=== PATIENT | female | born 1995 | race Caucasian/White ===

== ENCOUNTER 2017-03-09 16:54 | Outpatient (CLI) | payer MEDICAID ==
[~2017-03-09] VITALS: Ht 152.4 cm; Wt 80.3 kg
[~2017-03-09 16:54] MED LIST: ACET500C5 PO; CEPH-443 PO; METO10TA92 PO; ONDA4TAB14 PO
[2017-03-09 17:37] VITALS: BP 118/56; PULSE 101
[2017-03-09] MEDS ORDERED: PRENAT PO (17:41)
--- NOTE | 2017-03-09 19:44 | RADRPT ---
PROCEDURE: US OB. CLINICAL INDICATION: Decreased movement TECHNIQUE: Pelvic ultrasound performed for biophysical profile. COMPARISON: 09/01/2016 FINDINGS: Single intrauterine gestation present with heart rate at 141 beats per minute. Presentation is ceph alic. Placenta is anterior, grade II. Biophysical profile score is 8/8 (breathing=2, movement=2, t one =2, fluid volume=2). Amniotic fluid volume is within normal limits, with DAVID = 21.9 cm. RPTAT:HJJR IMPRESSION: 1. Biophysical profile score 8/8. 2. Amniotic fluid index measured at 21.9 cm. Physician Al Date Time Electronically viewed and signed by Physician Al on 03/09/2017 19:43 JR/
--- NOTE | 2017-06-02 09:22 | QN ---
Documentation Comment 35 weeks gestation c/o abdominal pain. FHR: category I. She discharged home in satable condition with f/u with primary OB ROSSY COLINDRES Jun 02, 2017 09:21
--- NOTE | 2017-06-04 18:16 | PN ---
Triage Information Date/Time 03/09/17 Weeks of Gestation 35 : 1 Para: 0 Assessment/Plan DECREASE MOVEMENT HERBERT BRAND MD Jun 04, 2017 18:13
== END 2017-03-09 20:35 | disposition home or self-care (01) ==
LOC: L-D 16:54 → OBT 16:54 → L-D 16:55 → OBT 20:35
PROVIDERS: ATTEND Obstetrics & Gynecology
DX: O36.8130 Decreased fetal movements, third trimester, not applicable or unspecified (principal); Z3A.35 35 weeks gestation of pregnancy; O26.893 Other specified pregnancy related conditions, third trimester; R10.9 Unspecified abdominal pain
CPT/HCPCS: 76818; Z7500; G0463

== ENCOUNTER 2017-04-03 10:20 | Outpatient (CLI) | payer MEDICAID ==
--- NOTE | 2017-03-10 00:10 | PN ---
Date/Time of Note Date/Time of Note DATE: 03/10/17 TIME: 00:02 OB Subjective Subjective Subjective 21 Year-old G1 with SIUP at 35 1/7 weeks presents with a chief complaint of lower abdominal pain. She has been receiving her care with Dr. Garcia. She states good movement. She denies nausea, vomiting, shortness of breath, chest pain, headache, visual changes, vaginal bleeding or LOF. OB Objective Objective Objective General: Patient appears well, alert and oriented, NAD, appropriate mood and affect ABD: gravid, soft, non-tender. Back: No CVA tenderness (B/L) LE: No clubbing, cyanosis, edema, thigh or calf tenderness bilaterally FHT: 135 bpm , moderate variability with acceleration, no deceleration-category I Contractions: None SVE: closed/thick/high/cephalic/intact membrane OB Assessment/Plan Other plan: 21 Year-old G1 with SIUP at 35 1/7 weeks presents with lower abdominal pain.Her exam is unremarkable. - FHR: No sign of metabolic acidosis- Category I - Continuous EFM, toco - Contractions: None. - Reactive NST. BPP: 10/10, DAVID: 21.5 - Symptoms and sign of labor, preeclampsia, kick count discussed with patient, she voiced understanding. All of her questions answered. - Patient was discharged home in stable condition with the appropriate discharge instructions provided. I would like patient to have close follow-up with her primary physician or outpatient clinic in 1-2 days or return to the ER for worsening symptoms or any other urgent concerns. ROSSY COLINDRES Mar 10, 2017 00:10
[~2017-04-03] VITALS: Ht 152.4 cm; Wt 82.7 kg
[~2017-04-03 10:20] MED LIST changes: +PRENAT PO
[2017-04-03 10:33] VITALS: Ht 152.4 cm; Wt 82.7 kg
--- NOTE | 2017-04-03 10:46 | RADRPT ---
PROCEDURE: OB ultrasound for biophysical profile CLINICAL INDICATION: Macrosomia TECHNIQUE: Multiple sonographic images of the pelvis were obtained. Transabdominal views of the g ravid uterus are available for review. The images were reviewed on a PACS workstation. COMPARISON: None FINDINGS: breathing movement = 2/2 tone = 2/2 motion = 2/2 DAVID = 2/2 DAVID = 13.2 cm Single live intrauterine with cardiac activity of 150 bpm. position is cephal ic. The placenta is anterior. IMPRESSION: 1. Single live intrauterine gestation. 2. Biophysical profile = 8/8. 3. DAVID = 13.2 cm. RPTAT: HH .Aracelis Santiago MD, MD Date Time Electronically viewed and signed by .Aracelis Santiago MD, on 04/03/2017 10:46 .G/
--- NOTE | 2017-04-03 10:54 | RADRPT ---
PROCEDURE: Obstetrical ultrasound CLINICAL INDICATION: MACROSOMIA TECHNIQUE: Multiple sonographic images of the pelvis were obtained. The images were reviewed on a PACS workstation. COMPARISON: Obstetrical ultrasound from 03/09/2017 FINDINGS: The cervix is not well visualized. There is a single viable intrauterine gestation. Cardiac activity is present with 150 beats per minute. There is a vertex presentation. The placenta is anterior. There is no evidence for an abruption or placenta previa. There is a normal amount of amniotic fluid with an DAVID = 13.2 cm. Measurements were made in order to determine age. The results are as follows (cm): BPD =9.08 HC =32.15 AC =34.88 FL =7.40 Estimated gestational age by ultrasound of approximately 37 weeks, 3 days. The estimated date of delivery by ultrasound is 04/21/2017. Estimated gestational age by LMP of approximately 38 weeks, 5 days. The estimated date of delivery by LMP is 04/12/2017. EFW = 3377 grams (49th percentile) IMPRESSION: Single viable intrauterine gestation of approximately 37 weeks, 3 days . The estimated date of delivery is 04/21/2017 . Dating by ultrasound is within 9 days of dating by LMP. Estimated weight is in the 49th percentile. Normal DAVID. Cephalic presentation. RPTAT: EE Physician Adelaida Date Time Electronically viewed and signed by Physician Adelaida on 04/03/2017 10:54 RA/
--- NOTE | 2017-04-03 12:03 | TRIAGE ---
OB Triage Datetime Report Generated by CPN: 04/03/2017 12:03 Datetime: 04/03/2017 10:57 Labor Evaluation Frequency: OCC Monitor Mode: External Duration (sec)2399: 40-50 Quality: Mild Pattern: Normal: <= 5 Contractions in 10 Minutes Resting Tone [place]: Relaxed Heart Rate FHR Baseline Rate: 140 Monitor Mode: External US FHR Baseline Changes: No Baseline Change Variability: Moderate 6-25 bpm Accelerations: 15X15 Decelerations: None Category: Category I Pain Presence: None/Denies Datetime: 04/03/2017 10:37 Assessment Type: Triage Maternal Assessment Level of Consciousness: Fully Conscious DTR's/Clonus: DTRs 2+; No Clonus Headache: Denies Blurred Vision: No Respiratory Effort: Unlabored; Regular Rhythm; Equal Expansion Breath Sounds, Left: Clear and Equal Breath Sounds, Right: Clear and Equal Nausea/Vomiting: Denies RUQ Epigastric Pain: Denies Lower Extremities Edema: None Degree: None Upper Extremities Edema: None Degree: None Facial Edema: None Fall Risk Assessment History of Falling: (0) No Secondary Diagnosis: (0) No Ambulatory Aid: (0) Bedrest/Nurse Assist IV Therapy: (0) No Gait: (0) Normal/Bedrest/Immobile Mental Status: (0) Oriented to Own Ability Fall Score: 0 Fall Risk Score Definition: No Risk: No action required Datetime: 04/03/2017 10:34 Labor Evaluation Frequency: OCC Monitor Mode: External Quality: Mild Pattern: Normal: <= 5 Contractions in 10 Minutes Resting Tone [place]: Relaxed Heart Rate FHR Baseline Rate: 140 Monitor Mode: External US FHR Baseline Changes: No Baseline Change Variability: Moderate 6-25 bpm Accelerations: 15X15 Decelerations: None Category: Category I Pain Presence: None/Denies Datetime: 04/03/2017 10:20 Time of Arrival: 04/03/2017 10:20 EGA: 38.5 Arrived By: Ambulatory Arrived From: Home Chief Complaint: NST, DAVID, BPP AND EFW, POSITION Movement: Present Contractions: Irregular Rupture of Membranes: Denies Vaginal Bleeding: None Vaginal Discharge: Denies Recent Sexual Intercouse: Denies Abdominal Trauma: Not Applicable Patient Complaints: None Time Provider Notified: 04/03/2017 11:00 Provider Notified: [facility] Initial Plan: NST, DAVID, BPP AND EFW, POSITION Datetime: 03/09/2017 20:30 Stage of : OB Triage Datetime: 03/09/2017 20:26 Labor Evaluation Frequency: IRR/OCC Monitor Mode: External Duration (sec)2399: 40 Pattern: Normal: <= 5 Contractions in 10 Minutes Heart Rate FHR Baseline Rate: 145 Monitor Mode: External US FHR Baseline Changes: No Baseline Change Variability: Moderate 6-25 bpm Accelerations: 15X15 Decelerations: None Category: Category I Datetime: 03/09/2017 20:12 Vaginal Exam Dilatation (cms): 0.0 Effacement (%): 0 Station: -4 Exam By: QUINCY Vaginal Bleeding: None Cervix, Consistency: Firm Cervix, Position: Posterior Presentation 'A': Unable to Assess Datetime: 03/09/2017 20:11 Monitor Mode: Palpation Resting Tone [place]: Relaxed Datetime: 03/09/2017 20:00 Labor Evaluation Frequency: OCC Duration (sec)2399: 40-60 Pattern: Normal: <= 5 Contractions in 10 Minutes Heart Rate FHR Baseline Rate: 135 FHR Baseline Changes: No Baseline Change Variability: Moderate 6-25 bpm Decelerations: None Datetime: 03/09/2017 18:34 Stage of : OB Triage Datetime: 03/09/2017 18:32 Labor Evaluation Frequency: OCCAS Monitor Mode: External Duration (sec)2399: 30-50 Resting Tone [place]: Relaxed Heart Rate FHR Baseline Rate: 135 Monitor Mode: External US Variability: Moderate 6-25 bpm Decelerations: None Category: Category I Pain Assessment Pain Scale: 0 Pain Presence: None/Denies Pain Location: Abdomen Pain Goal: 3 Pain Relief Measures: Comfort Measures Datetime: 03/09/2017 17:33 Stage of : OB Triage Assessment Type: Triage EGA: 35.1 Maternal Assessment Level of Consciousness: Fully Conscious DTR's/Clonus: DTRs 2+; No Clonus Headache: Denies Blurred Vision: No Respiratory Effort: Unlabored; Regular Rhythm; Equal Expansion Breath Sounds, Left: Clear and Equal Breath Sounds, Right: Clear and Equal Nausea/Vomiting: Denies RUQ Epigastric Pain: Denies Facial Edema: None Temperature Route: Axillary Fall Risk Assessment History of Falling: (0) No Secondary Diagnosis: (0) No Ambulatory Aid: (0) Bedrest/Nurse Assist IV Therapy: (0) No Gait: (0) Normal/Bedrest/Immobile Mental Status: (0) Oriented to Own Ability Fall Score: 0 Fall Risk Score Definition: No Risk: No action required Labor Evaluation Frequency: 3-5 Monitor Mode: External Duration (sec)2399: 30-50 Quality: Mild Resting Tone [place]: Relaxed Heart Rate FHR Baseline Rate: 125 Monitor Mode: External US Variability: Moderate 6-25 bpm Decelerations: None Category: Category I Pain Assessment Pain Scale: 4 Pain Presence: Constant Pain Type: Cramping Pain Location: Abdomen Pain Goal: 3 Pain Relief Measures: Comfort Measures Datetime: 03/09/2017 17:15 Time of Arrival: 03/09/2017 16:50 Arrived By: Ambulatory Arrived From: Home (Annotations: Data stored by CPN on behalf of user) Chief Complaint: UC'S IRREG X 2-3 DAYS, DENIES BLEEDING OR LEAKING OF FLUID Movement: Decreased Contractions: Irregular Rupture of Membranes: Denies Vaginal Discharge: Denies Recent Sexual Intercouse: Denies Abdominal Trauma: Not Applicable Time Provider Notified: 03/09/2017 18:25 Provider Notified: CATHIE Initial Plan: MONITOR, BPP
--- NOTE | 2017-04-03 18:05 | QN ---
Documentation Comment iup 38 weeks DFM vss exam wnl us wnl a/p iup 38 weeks DFM resolved dc home KYMBERLY ESCOBEDO MD April 03, 2017 18:05
== END 2017-04-03 11:48 | disposition home or self-care (01) ==
LOC: OBT 10:20 → L-D 10:21 → OBT 11:48
PROVIDERS: ATTEND Obstetrics & Gynecology
DX: O36.8130 Decreased fetal movements, third trimester, not applicable or unspecified (principal); Z3A.38 38 weeks gestation of pregnancy
CPT/HCPCS: 76815; 76818; G0463

== ENCOUNTER 2017-04-14 12:46 | Inpatient (IN) | payer MEDICAID ==
[~2017-04-14] VITALS: Ht 152.4 cm; Wt 84.4 kg
[~2017-04-14 12:46] MED LIST changes: -ACET500C5 PO; -CEPH-443 PO; -METO10TA92 PO; -ONDA4TAB14 PO
[2017-04-14 13:36] VITALS: BP 108/72; PULSE 107
[2017-04-14] MEDS ORDERED: LIDOCAINE 1% (MPF) 30 ML INJ INJ PRN (14:30)
[2017-04-14] MEDS ORDERED: METHYLERGONOVINE 0.2 MG INJ IM PRN (14:30)
[2017-04-14] MEDS ORDERED: LACTATED RINGER'S 1,000 ML IV PRN (14:30)
[2017-04-14] MEDS ORDERED: MISOPROSTOL 200 MCG TAB PR PRN (14:30)
[2017-04-14] MEDS ORDERED: BUTORPHANOL 2 MG INJ IV PRN ×2 (14:30)
[2017-04-14] MEDS ORDERED: CARBOPROST 250 MCG INJ IM PRN (14:30)
[2017-04-14] MEDS ORDERED: OXYTOCIN 30 UNITS/LR 500 ML IV SCH ×3 (14:30)
[2017-04-14] MEDS ORDERED: OXYTOCIN 30 UNITS/LR 500 ML IV PRN (14:30)
[2017-04-14 16:19] LABS: ADD SCAN DIFF NO
[2017-04-14 16:21] LABS: BASOPHILS % 0.1 % (0.0-2.0); EOSINOPHILS % 0.4 % (0.0-7.0); HEMATOCRIT 31.9 % (37.0-47.0); HEMOGLOBIN 10.6 g/dl (12.0-16.0); LYMPHOCYTES # 2.2 10^3/ul (0.8-2.9); LYMPHOCYTES % 23.6 % (15.0-51.0); MEAN CORPUSCULAR HEMOGLOBIN 29.1 pg (29.0-33.0); MEAN CORPUSCULAR HGB CONC 33.2 g/dl (32.0-37.0); MEAN CORPUSCULAR VOLUME 87.6 fl (82.0-101.0); MEAN PLATELET VOLUME 12.4 fl (7.4-10.4); MONOCYTE # 0.7 10^3/ul (0.3-0.9); MONOCYTES % 7.3 % (0.0-11.0); NEUTROPHIL # 6.3 10^3/ul (1.6-7.5); NEUTROPHILS % 67.9 % (39.0-77.0); PLATELET COUNT 216 10^3/UL (140-415); RED BLOOD COUNT 3.64 10^6/ul (4.20-5.40); RED CELL DISTRIBUTION WIDTH 15.3 % (11.5-14.5); WHITE BLOOD COUNT 9.2 10^3/ul (4.8-10.8)
--- NOTE | 2017-04-14 16:21 | HP ---
Date/Time of Note Date/Time of Note DATE: 04/14/17 TIME: 16:13 OB - History Hx of Present Free Text/Dictation 21 years old female 1 para 0 EDC 04/12/2017 admitted to [facility].40 weeks2/7 days mild contraction requires labor augmentation this patient has been under the care of the [facility] and her was not complicated with gestational diabetes -induced hypertension pelvic examination on admission cervix 1 cm 40% effaced vertex at - 2 station with intact membranes induction of labor versus expecting management discussed with the patient patient opted with induction Plan of induction Cervidil to follow with Pitocin IV infusion Estimated Due Date: April 12, 2017 : 1 Para: 0 Ultrasounds: Normal mid trimester US Obstetrical Complications: None Medical Complications: None Past Family/Social History * Past Medical, Surgical, Family and Obstetric Histories reviewed from chart. Rubella: immune RPR/VDRL: Negative GBS Status: Negative HBsAG: Negative OB Admission Exam Vital Signs Vital Signs Vital Signs Date Time Temp Pulse Resp B/P Pulse Ox O2 Delivery O2 Flow Rate FiO2 04/14/17 13:36 98.0 107 108/72 Physical Exam HEENT: WNL Heart: Rhythm Normal Lungs: Clear, Equal Abdomen: WNL Extremities: Normal Reflexes: Normal Cervical Dilatation: 1cm Effacement: 50% Station: -2 Membranes: Intact Heart Rate: 130's Decelerations: No Decelerations Varibility: Moderate Contractions on Admission: >10 Minutes Apart Intensity: Mild HERBERT BRAND MD April 14, 2017 16:21
[2017-04-14] MEDS: LACTATED RINGER'S 1,000 ML IV SCH ×3 (16:24→23:11)
[2017-04-14 16:39] LABS: INR 0.91; PARTIAL THROMBOPLASTIN TIME 29.4 Sec (25.0-35.0); PROTIME 12.2 Sec (12.2-14.2)
[2017-04-14] MEDS ORDERED: DINOPROSTONE 10 MG VAG SUPP VAG ONE (17:00)
--- NOTE | 2017-04-14 17:08 | RADRPT ---
PROCEDURE: US OB biophysical profile. CLINICAL INDICATION: decreased movements, contractions TECHNIQUE: Multiple sonographic images of the pelvis were obtained. The images were reviewed on a PACS workstation. COMPARISON: 04/03/17 FINDINGS: There is a single viable intrauterine gestation. Cardiac activity is present with 141 beats per min [place]. There is a vertex presentation. The placenta is anterior. There is no evidence of placental abruption. There is a normal amount of amniotic fluid with an DAVID = 15.1 cm. Biophysical profile: movement 2/2 tone 2/2. breathing 2/2 DAVID 2/2 Total 06/23 RPTAT: AA . IMPRESSION: Normal biophysical profile. . .Sixto Velasquez MD, MD Date Time Electronically viewed and signed by .Sixto Velasquez MD, MD on 04/14/2017 17:07 .S/
--- NOTE | 2017-04-14 17:09 | RADRPT ---
PROCEDURE: US OB. CLINICAL INDICATION: Size and dates TECHNIQUE: Multiple sonographic images of the pelvis and gravid uterus were obtained. The images were reviewed on a PACS workstation. COMPARISON: 04/03/17 FINDINGS: There is a single viable intrauterine gestation. Cardiac activity is present with 137 beats per min [place]. There is a vertex presentation. The placenta is anterior. There is no evidence of placental abruption. There is a normal amount of amniotic fluid with an DAVID = 15.1 cm. Measurements were made in order to determine age. The results are as follows: BPD =9.7 cm HC =34.4 cm AC =36 cm FL =7.8 cm Estimated gestational age of approximately 39 weeks and 6 days based on ultrasound measurements. Clinical age: 40 weeks and 2 days. The estimated date of delivery is 04/15/2017, based on ultrasound measurements. The EFW = 3903 g, 69%, based on LMP age. RPTAT: AA IMPRESSION: Single viable intrauterine gestation of approximately 39 weeks and 6 days based on ultrasound measu rements. .Sixto Velasquez MD, MD Date Time Electronically viewed and signed by .Sixto Velasquez MD, on 04/14/2017 17:08 .S/
[2017-04-14 19:40] LABS: BARBITURATES NEGATIVE (NEGATIVE); BENZODIAZEPINES NEGATIVE (NEGATIVE); CANNABINOIDS NEGATIVE (NEGATIVE); COCAINE NEGATIVE (NEGATIVE); OPIATES NEGATIVE (NEGATIVE)
[2017-04-14] MEDS ORDERED: LACTATED RINGER'S 1,000 ML IV ONE (21:17)
[2017-04-14] MEDS ORDERED: NALOXONE (0.4 MG/ML) INJ IV PRN (21:30)
[2017-04-14] MEDS ORDERED: KETOROLAC 30 MG INJ IV PRN (21:30)
[2017-04-14] MEDS ORDERED: ONDANSETRON 4 MG INJ IV PRN (21:30)
[2017-04-14] MEDS ORDERED: DIPHENHYDRAMINE 50 MG INJ IV PRN (21:30)
[2017-04-14] MEDS ORDERED: morphine 2 MG INJ IV PRN ×2 (21:30)
[2017-04-14] MEDS ORDERED: ONDANSETRON 4 MG INJ IV ONE (21:30)
[2017-04-14] MEDS ORDERED: PROCHLORPERAZINE 10 MG INJ IV PRN (21:30)
[2017-04-14] MEDS ORDERED: CITRIC ACID/SODIUM CITRATE 15 ML CUP PO ONE (21:30)
[2017-04-14] MEDS ORDERED: ACETAMINOPHEN 1000MG/100ML IV 100 ML IVPB ONE (23:00)
[2017-04-15] MEDS: LACTATED RINGER'S 1,000 ML IV SCH ×3 (02:55→10:48)
[2017-04-15] MEDS: FENTAnyl 2MCG/ML-ROPIV 0.2% 100 ML BAG EPI SCH ×2 (05:02→15:58)
[2017-04-15] MEDS ORDERED: CEFAZOLIN 2 GM/50 ML (PMX) 50 ML IVPB ONE (16:30)
[2017-04-15] MEDS ORDERED: CITRIC ACID/SODIUM CITRATE 15 ML CUP PO ONE (17:00)
[2017-04-15] MEDS ORDERED: FAMOTIDINE 20 MG INJ IV ONE (17:00)
[2017-04-15] MEDS ORDERED: FENTAnyl 50 MCG/ML VIAL ONE (17:31)
[2017-04-15] MEDS ORDERED: LIDOCAINE 2%/EPI 30 ML INJ ONE (17:42)
[2017-04-15] MEDS ORDERED: DEXAMETHASONE 4 MG/ML 1 ML INJ ONE (17:42)
[2017-04-15] MEDS ORDERED: morphine SULFATE/PF (10 MG/10 ML) INJ ONE (18:21)
[2017-04-15] MEDS ORDERED: ZOLPIDEM 5 MG TAB PO PRN (18:30)
[2017-04-15] MEDS ORDERED: ONDANSETRON 4 MG INJ IV PRN (18:30)
[2017-04-15] MEDS ORDERED: HYDROmorphONE 1 MG/ML SYG IV PRN ×2 (18:30)
[2017-04-15] MEDS ORDERED: NALOXONE (0.4 MG/ML) INJ IV PRN (18:30)
--- NOTE | 2017-04-15 20:10 | OPR ---
DATE OF OPERATION: 04/15/2017 PREOPERATIVE DIAGNOSES: 1. Intrauterine at 40 weeks and 3 days. 2. Failure to descend at second stage of labor after 3-1/2 hours of pushing. 3. The patient declined further trial of labor due to fatigue and exhaustion and requested section delivery. POSTOPERATIVE DIAGNOSES: 1. Intrauterine at 40 weeks and 3 days. 2. Failure to descend at second stage of labor after 3-1/2 hours of pushing. 3. The patient declined further trial of labor due to fatigue and exhaustion and requested section delivery. OPERATION PERFORMED: Primary transverse low cervical section. SURGEON: Herbert Garcia MD COMPRESSED AIR PILE DRIVER OPERATOR: Robert Hawkins MD ANESTHESIA: Spinal. ANESTHESIOLOGIST: FINDINGS: Live baby boy, Apgars 8 and 9. Baby weighed 9 pounds 6 ounces, equal to 4250 grams. DETAILS OF THE PROCEDURE: Under satisfactory spinal anesthesia, the patient prepped and draped and placed in supine position tilted to the left. Pfannenstiel incision was made, incision carried through the subcutaneous tissue. Bleeders brought under control with electrocautery. Fascia incised to the length of incision. Rectus muscle divided in midline. Peritoneum exposed, entered through a transverse incision. Exploration of abdomen. Gravid uterus, abundant amount of peritoneal fluid and evidence of a long labor. Bladder flap was developed. Transverse incision was made in the lower segment of the uterus. Amniotic sac ruptured. Light meconium amniotic fluid noted. Live baby boy was delivered from unengaged vertex with a nuchal cord x1 around the baby's neck. Nasal oropharyngeal suction was performed and baby handed to the team for immediate attention. The patient received 20 units of Pitocin. Placenta delivered manually intact. Uterine cavity cleaned with wet sponge and drainage established. Uterus closed in 2 layers using Monocryl #1 in continuous fashion. Peritoneal cavity irrigated with warm saline. Sponge, needle, instrument reported to be correct. Abdominal peritoneum closed with 2- 0 chromic catgut continuously. Rectus muscle approximated with few interrupted 2-0 chromic catgut. Fascia closed with #1 PDS in a continuous fashion. Subcutaneous tissue irrigated with warm saline and approximated with interrupted 2-0 chromic catgut. The skin closed with tashi. Estimated blood loss 600 mL. Urine bag contained 200 mL of clear urine. The patient tolerated procedure well, transferred to recovery room in good condition. Dictated By: HERBERT FIGUEREDO/KAMERON Conf#: [id number] DID#: [id number] MTDD
[2017-04-15] MEDS: KETOROLAC 30 MG INJ IV PRN (21:32)
[2017-04-15 22:15] VITALS: BP 122/61; PULSE 65; RESP 17
--- NOTE | 2017-04-15 22:28 | DELSUM ---
Delivery Summary A-C Datetime Report Generated by CPN: 04/15/2017 22:28 DELIVERY PERSONNEL Agricultural Engineering Technologist: JAZMIN RN ORT MATERNAL INFORMATION Delivery Anesthesia: Epidural Medications in Delivery: pitocin 30 UNITS IN LR Estimated Blood Loss (ml): 600 Placenta Cultured: No Maternal Complications: Prolong 2nd Stage >2Hrs LABOR SUMMARY EDC: 04/12/2017 00:00 No. Babies in Womb: 1 Attempted: No Labor Anesthesia: Epidural LABOR INFORMATION Reason for Induction: Postterm; Macrosomia Onset of Labor: 04/14/2017 07:00 Complete Dilatation: 04/15/2017 06:13 Cervical Ripening Agents: Cervidil Oxytocin: Augmentation Group B Beta Strep: Negative Group B Beta Strep: Done, Result Unknown Antibiotics # of Doses: 1 Antibiotics Time of Last Dose: 04/15/2017 17:40 Steroids Given: None Reason Steroids Not Administered: Not Applicable MEMBRANES Membranes Rupture Method: Spontaneous Rupture of Membranes: 04/15/2017 06:13 Length of Rupture (hr): 11.75 Amniotic Fluid Color: Clear Amniotic Fluid Amount: Large Amniotic Fluid Odor: None STAGES OF LABOR Stage 1 hr: 23 Stage 1 min: 13 Stage 2 hr: 11 Stage 2 min: 45 Stage 3 hr: 0 Stage 3 min: 1 Total Time in Labor hr: 34 Total Time in Labor min: 59 CSECTION DELIVERY Primary Indication: Failure of Descent Secondary Indication: Prolong Active Phase Other Secondary Indication: PT DENIES FURTHER TRIAL OF LABOR CSection Urgency: Non Elective CSection Incidence: Primary Labor: Labor Elective: Elective CSection Incision: Lower Uterine Transverse BABY A INFORMATION Infant Delivery Date/Time: 04/15/2017 17:58 Method of Delivery: Born in Route : No : N/A Forceps: N/A Vacuum Extraction: N/A Shoulder Dystocia : N/A SHOULDER DYSTOCIA BABY A Infant Delivery Date/Time: 04/15/2017 17:58 PRESENTATION/POSITION BABY A Presentation: Cephalic Cephalic Presentation: Vertex Vertex Position: Left Occipital Posterior Breech Presentation: N/A PLACENTA INFORMATION BABY A Placenta Delivery Time : 04/15/2017 17:59 Placenta Method of Delivery: Manual Removal Placenta Status: Delivered SCORES BABY A Heart Rate 1 min: >100 bpm Resp Effort 1 min: Good Cry Reflex Irritability 1 min: Cough/Sneeze/Pulls Away Muscle Tone 1 min: Active Motion Color 1 min: Blue/Pale Resuscitation Effort 1 min: Tactile Stimulation SCORE 1 MIN: 8 Heart Rate 5 min: >100 bpm Resp Effort 5 min: Good Cry Reflex Irritability 5 min: Cough/Sneeze/Pulls Away Muscle Tone 5 min: Active Motion Color 5 min: Body [place], Extremit Blue Resuscitation Effort 5 min: N/A SCORE 5 MIN: 9 INFANT INFORMATION BABY A Gestational Age at Delivery: 40.3 Gestational Status: Full Term- 39- 40.6 Weeks Infant Outcome : Liveborn Condition : Stable Sex: Male IDENTIFICATION/MEDS BABY A ID Band Number: [id number] ID Band Location: Right Leg; Left Arm Sensor Applied: Yes Sensor Number: [id number] Sensor Location : Cord Clamp Vitamin K Given : Not Given Erythromycin Given: Not Given WEIGHT/LENGTH BABY A Infant Birthweight (gm): 4250 Infant Weight (lb): 9 Weight (oz): 6 Infant Length (in): 22.00 Length (cm): 55.88 CORD INFORMATION BABY A No. Cord Vessels: 3 Nuchal Cord : Around Neck x1, Loose Nuchal Cord- Other: 0 True Knot: 0 Cord Blood Taken: Yes Banking/Donate Info: N/A Suction: Mouth; Nose ASSESSMENT BABY A Infant Complications: None Physical Findings at Delivery: Within Normal Limits Respirations: Appears Normal Speech Language Pathologist Prn/ALS Called : Yes Infant Care By: SHILOH FERRELL Transferred To: [facility]
[2017-04-15 22:30] VITALS: BP 130/71; PULSE 80; RESP 17
[2017-04-15] MEDS ORDERED: LANOLIN 7 GM TUBE TOP PRN (22:30)
[2017-04-15] MEDS ORDERED: MISOPROSTOL 200 MCG TAB PR PRN (22:30)
[2017-04-15] MEDS ORDERED: METHYLERGONOVINE 0.2 MG INJ IM PRN (22:30)
[2017-04-15] MEDS ORDERED: OXYTOCIN 30 UNITS/LR 500 ML IV PRN (22:30)
[2017-04-15] MEDS ORDERED: CEFAZOLIN 1 GM/50 ML (PMX) 50 ML IVPB SCH (22:30)
[2017-04-15] MEDS ORDERED: ACETAMINOPHEN/CODEINE #3 TAB PO PRN ×2 (22:30)
[2017-04-15] MEDS ORDERED: CARBOPROST 250 MCG INJ IM PRN (22:30)
[2017-04-15] MEDS: OXYTOCIN 30 UNITS/LR 500 ML IV SCH (23:24)
[2017-04-15] MEDS: DIPHENHYDRAMINE 50 MG INJ IV PRN (23:24)
[2017-04-15] MEDS: CEFAZOLIN 2 GM/50 ML (PMX) 50 ML IVPB SCH (23:33)
--- NOTE | 2017-04-15 23:33 | DELSUM ---
Delivery Summary A-C Datetime Report Generated by CPN: 04/15/2017 23:33 DELIVERY PERSONNEL Crown Assembly Machine Operator: JAZMIN RN ORT MATERNAL INFORMATION Delivery Anesthesia: Epidural Medications in Delivery: pitocin 30 UNITS IN LR Estimated Blood Loss (ml): 600 Placenta Cultured: No Maternal Complications: Prolong 2nd Stage >2Hrs LABOR SUMMARY EDC: 04/12/2017 00:00 No. Babies in Womb: 1 Attempted: No Labor Anesthesia: Epidural LABOR INFORMATION Reason for Induction: Postterm; Macrosomia Onset of Labor: 04/14/2017 07:00 Complete Dilatation: 04/15/2017 06:13 Cervical Ripening Agents: Cervidil Oxytocin: Augmentation Group B Beta Strep: Negative Group B Beta Strep: Done, Result Unknown Antibiotics # of Doses: 1 Antibiotics Time of Last Dose: 04/15/2017 17:40 Steroids Given: None Reason Steroids Not Administered: Not Applicable MEMBRANES Membranes Rupture Method: Spontaneous Rupture of Membranes: 04/15/2017 06:13 Length of Rupture (hr): 11.75 Amniotic Fluid Color: Clear Amniotic Fluid Amount: Large Amniotic Fluid Odor: None STAGES OF LABOR Stage 1 hr: 23 Stage 1 min: 13 Stage 2 hr: 11 Stage 2 min: 45 Stage 3 hr: 0 Stage 3 min: 1 Total Time in Labor hr: 34 Total Time in Labor min: 59 CSECTION DELIVERY Primary Indication: Failure of Descent Secondary Indication: Prolong Active Phase Other Secondary Indication: PT DENIES FURTHER TRIAL OF LABOR CSection Urgency: Non Elective CSection Incidence: Primary Labor: Labor Elective: Elective CSection Incision: Lower Uterine Transverse BABY A INFORMATION Infant Delivery Date/Time: 04/15/2017 17:58 Method of Delivery: Born in Route : No : N/A Forceps: N/A Vacuum Extraction: N/A Shoulder Dystocia : N/A SHOULDER DYSTOCIA BABY A Infant Delivery Date/Time: 04/15/2017 17:58 PRESENTATION/POSITION BABY A Presentation: Cephalic Cephalic Presentation: Vertex Vertex Position: Left Occipital Posterior Breech Presentation: N/A PLACENTA INFORMATION BABY A Placenta Delivery Time : 04/15/2017 17:59 Placenta Method of Delivery: Manual Removal Placenta Status: Delivered SCORES BABY A Heart Rate 1 min: >100 bpm Resp Effort 1 min: Good Cry Reflex Irritability 1 min: Cough/Sneeze/Pulls Away Muscle Tone 1 min: Active Motion Color 1 min: Blue/Pale Resuscitation Effort 1 min: Tactile Stimulation SCORE 1 MIN: 8 Heart Rate 5 min: >100 bpm Resp Effort 5 min: Good Cry Reflex Irritability 5 min: Cough/Sneeze/Pulls Away Muscle Tone 5 min: Active Motion Color 5 min: Body [place], Extremit Blue Resuscitation Effort 5 min: N/A SCORE 5 MIN: 9 INFANT INFORMATION BABY A Gestational Age at Delivery: 40.3 Gestational Status: Full Term- 39- 40.6 Weeks Infant Outcome : Liveborn Condition : Stable Sex: Male IDENTIFICATION/MEDS BABY A ID Band Number: [id number] ID Band Location: Right Leg; Left Arm Sensor Applied: Yes Sensor Number: [id number] Sensor Location : Cord Clamp Vitamin K Given : Not Given Erythromycin Given: Not Given WEIGHT/LENGTH BABY A Infant Birthweight (gm): 4250 Infant Weight (lb): 9 Weight (oz): 6 Infant Length (in): 22.00 Length (cm): 55.88 CORD INFORMATION BABY A No. Cord Vessels: 3 Nuchal Cord : Around Neck x1, Loose Nuchal Cord- Other: 0 True Knot: 0 Cord Blood Taken: Yes Banking/Donate Info: N/A Suction: Mouth; Nose ASSESSMENT BABY A Infant Complications: None Physical Findings at Delivery: Within Normal Limits Respirations: Appears Normal Supervisor Typesetting/ALS Called : Yes Infant Care By: SHILOH FERRELL Transferred To: [facility]
[2017-04-16] VITALS: BP 103/53; PULSE 65; RESP 18
[2017-04-16] MEDS: OXYTOCIN 30 UNITS/LR 500 ML IV SCH ×3 (03:01→15:41)
[2017-04-16 04:00] VITALS: BP 104/60; PULSE 86; RESP 18
[2017-04-16 06:54] LABS: ADD SCAN DIFF NO
[2017-04-16] MEDS: CEFAZOLIN 2 GM/50 ML (PMX) 50 ML IVPB SCH ×2 (06:59→12:18)
[2017-04-16 07:03] LABS: BASOPHILS % 0.1 % (0.0-2.0); HEMATOCRIT 24.7 % (37.0-47.0); HEMOGLOBIN 8.1 g/dl (12.0-16.0); LYMPHOCYTES # 2.1 10^3/ul (0.8-2.9); LYMPHOCYTES % 12.5 % (15.0-51.0); MEAN CORPUSCULAR HEMOGLOBIN 29.3 pg (29.0-33.0); MEAN CORPUSCULAR HGB CONC 32.8 g/dl (32.0-37.0); MEAN CORPUSCULAR VOLUME 89.5 fl (82.0-101.0); MEAN PLATELET VOLUME 12.8 fl (7.4-10.4); MONOCYTES % 6.2 % (0.0-11.0); NEUTROPHIL # 13.4 10^3/ul (1.6-7.5); NEUTROPHILS % 80.7 % (39.0-77.0); PLATELET COUNT 165 10^3/UL (140-415); RED BLOOD COUNT 2.76 10^6/ul (4.20-5.40); RED CELL DISTRIBUTION WIDTH 15.6 % (11.5-14.5); WHITE BLOOD COUNT 16.6 10^3/ul (4.8-10.8)
[2017-04-16 08:30] VITALS: BP 98/56; PULSE 69; RESP 18
[2017-04-16] MEDS: DIPHENHYDRAMINE 50 MG INJ IV PRN (10:03)
[2017-04-16 12:18] VITALS: BP 99/54; PULSE 84; RESP 18
[2017-04-16 15:40] VITALS: BP 105/56; PULSE 91; RESP 19
[2017-04-16] MEDS: KETOROLAC 30 MG INJ IV PRN (15:40)
--- NOTE | 2017-04-16 16:50 | PN ---
Date/Time of Note Date/Time of Note DATE: 04/16/17 TIME: 16:48 OB Subjective Subjective Subjective Laboratory Tests Test 04/16/17 06:39 White Blood Count 16.610^3/ul Red Blood Count 2.7610^6/ul Hemoglobin 8.1g/dl Hematocrit 24.7% Mean Corpuscular Volume 89.5fl Mean Corpuscular Hemoglobin 29.3pg Mean Corpuscular Hemoglobin Concent 32.8g/dl Red Cell Distribution Width 15.6% Platelet Count 32028^3/UL Mean Platelet Volume 12.8fl Neutrophils % 80.7% Lymphocytes % 12.5% Monocytes % 6.2% Eosinophils % 0.0% Basophils % 0.1% Nucleated Red Blood Cells % 0.0/100WBC Neutrophils # 13.410^3/ul Lymphocytes # 2.110^3/ul Monocytes # 1.010^3/ul Eosinophils # 0.010^3/ul Basophils # 0.010^3/ul Nucleated Red Blood Cells # 0.010^3/ul Current Medications Medications (Trade) Dose Ordered Sig/Jonathan Route PRN Reason Start Time Stop Time Status Last Admin Dose Admin Lactated Ringer's 1,000 ml @ 125 mls/hr Q8H IV 04/14/17 14:23 04/15/17 22:07 DC 04/15/17 10:48 Oxytocin/Lactated Ringer's 500 ml @ 0 mls/hr TITRATE IV 04/14/17 14:30 04/15/17 22:07 DC 04/15/17 13:17 Butorphanol Tartrate (Stadol) 1 mg Q2H PRN IV PAIN 04/14/17 14:30 04/15/17 22:08 DC Butorphanol Tartrate (Stadol) 2 mg Q2H PRN IV PAIN 04/14/17 14:30 04/15/17 22:08 DC Lidocaine 30 ml 30 ml ONCE PRN INJ EPISIOTOMY/TEARING 04/14/17 14:30 04/15/17 22:08 DC Oxytocin/Lactated Ringer's 500 ml @ 125 mls/hr ONCE -MAY REPEAT X1 IV 04/14/17 14:30 04/15/17 22:08 DC 04/15/17 19:05 Oxytocin/Lactated Ringer's 500 ml @ 125 mls/hr ONCE IV 04/14/17 14:30 04/15/17 22:08 DC Lactated Ringer's 1,000 ml @ 2,000 mls/hr Q30M PRN IV PRE-EPIDURAL BOLUS 04/14/17 14:30 04/15/17 22:08 DC 04/14/17 21:49 Oxytocin/Lactated Ringer's 500 ml @ 0 mls/hr ONCE PRN IV For Hemorrhage Management 04/14/17 14:30 04/15/17 22:08 DC Methylergonovine Maleate (Methergine) 0.2 mg ONCE PRN IM VAGINAL BLEEDING 04/14/17 14:30 04/15/17 22:08 DC Carboprost Tromethamine (Hemabate) 250 mcg ONCE PRN IM VAGINAL BLEEDING 04/14/17 14:30 04/15/17 22:08 DC Misoprostol (Cytotec) 1,000 mcg ONCE PRN MS VAGINAL BLEEDING 04/14/17 14:30 04/15/17 22:08 DC Dinoprostone 10 mg 10 mg ONCE ONCE VAG 04/14/17 17:00 04/14/17 17:01 DC 04/14/17 17:36 Lactated Ringer's (Lr) 1,000 ml @ 1,000 mls/hr Q1H ONCE IV 04/14/17 21:17 04/14/17 22:16 DC Ondansetron HCl (Zofran Inj) 4 mg pre-procedure ONCE IV 04/14/17 21:30 04/14/17 21:31 DC Citric Acid/ Sodium Citrate (Bicitra) 30 ml PRE-PROCEDURE ONCE PO 04/14/17 21:30 04/14/17 21:31 DC Naloxone HCl (Narcan) 0.1 mg Q2M PRN IV FOR RESP RATE 8 OR LESS 04/14/17 21:30 04/15/17 18:36 DC Ketorolac Tromethamine (Toradol) 30 mg Q6H PRN IV PAIN 04/14/17 21:30 04/15/17 18:35 DC Morphine Sulfate (morphine) 2 mg Q3H PRN IV PAIN LEVEL 1-5 04/14/17 21:30 04/15/17 21:31 DC Morphine Sulfate (morphine) 4 mg Q3H PRN IV PAIN LEVEL 6-10 04/14/17 21:30 04/15/17 21:31 DC Diphenhydramine HCl (Benadryl) 25 mg Q6H PRN IV ITCHING 04/14/17 21:30 04/15/17 18:35 DC Ondansetron HCl (Zofran Inj) 4 mg Q6H PRN IV NAUSEA AND/OR VOMITING 04/14/17 21:30 04/15/17 18:36 DC Prochlorperazine (Compazine Inj) 10 mg ONCE PRN IV NAUSEA AND/OR VOMITING 04/14/17 21:30 04/15/17 21:31 DC Fentanyl/ Ropivacaine 100 ml 100 ml EPIDURAL INFUSION EPI 04/14/17 21:30 04/15/17 22:07 DC 04/15/17 15:58 Acetaminophen 100 ml @ 400 mls/hr ONCE ONCE IVPB 04/14/17 23:00 04/14/17 23:14 DC 04/14/17 23:32 Cefazolin Sodium/ Dextrose (Ancef 2 Gm/50 ml (Pmx)) 50 ml @ 100 mls/hr ONCE ONCE IVPB 04/15/17 16:30 04/15/17 16:59 DC Citric Acid/ Sodium Citrate (Bicitra) 30 ml PRE-PROCEDURE ONCE PO 04/15/17 17:00 04/15/17 17:01 DC Famotidine (Pepcid Iv) 20 mg pre-procedure ONCE IV 04/15/17 17:00 04/15/17 17:01 DC Fentanyl (Sublimaze) 100 mcg STK-MED ONCE .ROUTE 04/15/17 17:31 04/15/17 17:32 DC Dexamethasone (Decadron) 4 mg STK-MED ONCE .ROUTE 04/15/17 17:42 04/15/17 17:43 DC Lidocaine/ Epinephrine (Xylocaine 2%/ Epi) 30 ml STK-MED ONCE .ROUTE 04/15/17 17:42 04/15/17 17:43 DC Morphine Sulfate (Duramorph) 10 mg STK-MED ONCE .ROUTE 04/15/17 18:21 04/15/17 18:22 DC Naloxone HCl (Narcan) 0.1 mg Q2M PRN IV FOR RESP RATE 8 OR LESS 04/15/17 18:30 04/16/17 18:29 Ketorolac Tromethamine (Toradol) 30 mg Q6H PRN IV PAIN 04/15/17 18:30 04/16/17 18:29 04/16/17 15:40 Hydromorphone HCl (Dilaudid) 0.2 mg Q3H PRN IV PAIN LEVEL 1-5 04/15/17 18:30 04/16/17 18:29 Hydromorphone HCl (Dilaudid) 0.4 mg Q3H PRN IV PAIN LEVEL 6-10 04/15/17 18:30 04/16/17 18:29 Diphenhydramine HCl (Benadryl) 25 mg Q6H PRN IV ITCHING 04/15/17 18:30 04/16/17 18:29 04/16/17 10:03 Ondansetron HCl (Zofran Inj) 4 mg Q6H PRN IV NAUSEA AND/OR VOMITING 04/15/17 18:30 04/16/17 18:29 04/15/17 23:21 Zolpidem Tartrate (Ambien) 5 mg HS MAY REPEAT X 1 PRN PO INSOMNIA 04/15/17 18:30 04/16/17 18:29 Miscellaneous Information Duramorph: 4 mg Epidu... GIVEN XX 04/15/17 18:30 04/15/17 22:07 DC Cefazolin Sodium/ Dextrose (Ancef 2 Gm/50 ml (Pmx)) 50 ml @ 100 mls/hr Q6 IVPB 04/16/17 00:00 04/16/17 12:18 Acetaminophen/ Codeine Phosphate (Tylenol No.3) 1 tab Q4H PRN PO PAIN LEVEL 4-6 04/15/17 22:30 Acetaminophen/ Codeine Phosphate (Tylenol No.3) 2 tab Q4H PRN PO PAIN LEVEL 7-10 04/15/17 22:30 Oxycodone/ Acetaminophen (Percocet (5/ 325)) 1 tab Q4H PRN PO PAIN LEVEL 4-6 04/15/17 22:30 Oxycodone/ Acetaminophen (Percocet (5/ 325)) 2 tab Q4H PRN PO PAIN LEVEL 7-10 04/15/17 22:30 Ibuprofen (Motrin) 600 mg Q6 PO 04/16/17 18:00 Simethicone (Mylicon) 160 mg Q8H PRN PO DISTENSION/GAS/BLOATING 04/15/17 22:30 Senna/Docusate Sodium (Senokot-S) 1 tab BID PO 04/16/17 21:00 Lanolin (Msq-Z-Oyupyj) 1 applic BEDSIDE MEDICATION PRN TOP BEDSIDE FOR YESI TO NIPPLES 04/15/17 22:30 04/16/17 15:40 Diphtheria/ Tetanus/Acell Pertussis 0.5 ml 0.5 ml ONCE ONCE IM* 04/18/17 09:00 04/18/17 09:01 Oxytocin/Lactated Ringer's 500 ml @ 0 mls/hr ONCE PRN IV For Hemorrhage Management 04/15/17 22:30 Methylergonovine Maleate (Methergine) 0.2 mg ONCE PRN IM VAGINAL BLEEDING 04/15/17 22:30 Carboprost Tromethamine (Hemabate) 250 mcg ONCE PRN IM VAGINAL BLEEDING 04/15/17 22:30 Misoprostol 1000 mcg 1,000 mcg ONCE PRN MS VAGINAL BLEEDING 04/15/17 22:30 Cefazolin Sodium 50 ml @ 100 mls/hr ONCE IVPB 04/15/17 22:30 04/15/17 22:59 DC Oxytocin/Lactated Ringer's 500 ml @ 125 mls/hr Q4H IV 04/15/17 22:02 04/16/17 15:41 Post day 1 Afebrile temperature 98.3 vital signs are stable abdomen soft slightly distended bowel sounds present incision lochia moderate extremities negative after DC IV ambulation recommended HERBERT BRAND MD Apr 16, 2017 16:50
[2017-04-16 20:17] VITALS: BP 117/73; PULSE 90; RESP 18
[2017-04-16] MEDS: OXYCODONE/ACETAMINOPHEN (5/325) TAB PO PRN (20:17)
[2017-04-16] MEDS: SENNA/DOCUSATE NA (8.6MG/50MG) TAB PO SCH (21:38)
[2017-04-16] MEDS: IBUPROFEN 600 MG TAB PO SCH (23:56)
[2017-04-17 04:00] VITALS: BP 112/70; PULSE 82; RESP 18
[2017-04-17] MEDS: IBUPROFEN 600 MG TAB PO SCH ×5 (06:45→23:38)
[2017-04-17] MEDS: OXYCODONE/ACETAMINOPHEN (5/325) TAB PO PRN ×3 (06:59→19:51)
[2017-04-17 08:30] VITALS: BP 110/53; PULSE 84; RESP 18
[2017-04-17] MEDS ORDERED: NA PHOSPHATE/BIPHOS 133 ML ENEMA PR ONE (09:00)
--- NOTE | 2017-04-17 09:03 | PN ---
Date/Time of Note Date/Time of Note DATE: 04/17/17 TIME: 09:01 OB Subjective Subjective Subjective Post day 2 Afebrile, vital signs stable abdomen soft, incision dry, lochia moderate, good bowel sounds no bowel movement fleets enema ordered ambulation encouraged plan of possible discharge a.m. discussed with the patient. HERBERT BRAND MD Apr 17, 2017 09:03
[2017-04-17] MEDS: SENNA/DOCUSATE NA (8.6MG/50MG) TAB PO SCH ×2 (09:47→21:11)
--- NOTE | 2017-04-17 10:44 | OPPN ---
Date/Time of Note Date/Time of Note DATE: 04/17/17 TIME: 10:44 Post-Anesthesia Notes Post-Anesthesia Note Last documented vital signs Vital Signs Date Time Temp Pulse Resp B/P Pulse Ox O2 Delivery O2 Flow Rate FiO2 04/17/17 08:30 98.0 84 18 110/53 Room Air 04/16/17 15:15 97 21 Activity: WNL Respiratory function: WNL Cardiovascular function: WNL Mental status: Baseline Pain reasonably controlled: Yes Hydration appropriate: Yes Nausea/Vomiting absent: Yes FRANKIE JAMES Apr 17, 2017 10:44
[2017-04-17 16:00] VITALS: BP 122/65; PULSE 78; RESP 18
[2017-04-17 19:51] VITALS: BP 118/62; PULSE 86; RESP 18
[2017-04-18] MEDS: OXYCODONE/ACETAMINOPHEN (5/325) TAB PO PRN ×3 (02:33→15:53)
[2017-04-18 04:15] VITALS: BP 109/54; PULSE 88; RESP 18
[2017-04-18] MEDS: IBUPROFEN 600 MG TAB PO SCH ×3 (05:47→17:36)
[2017-04-18 08:00] VITALS: BP 97/52; PULSE 82; RESP 18
[2017-04-18] MEDS: SENNA/DOCUSATE NA (8.6MG/50MG) TAB PO SCH (08:33)
[2017-04-18] MEDS ORDERED: DIPHTH/TET/ACEL PERTUSS (ADULT) 0.5 ML VIAL IM* ONE (09:00)
--- NOTE | 2017-04-18 15:49 | PD.PPDC ---
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
--- NOTE | 2017-04-18 15:53 | DS ---
Date/Time of Note Date/Time of Note DATE: 04/18/17 TIME: 15:51 Discharge Summary Admission/Discharge Info Admit Date/Time April 14, 2017 at 14:37 Discharge Date/Time April 18, 2017 at 1550 Final Diagnosis Term failure to progress second stage of labor primary Patient Condition: Good Procedures Primary section Hx of Present Illness Term failure to progress second stage of labor declined further trial of labor Hospital Course Satisfactory uneventful Home Meds Reported Medications Multivit/Min/Fol Ac/Iron/Pren* ( S*) 1 Tab Tab, 1 TAB PO DAILY, TAB 03/09/17 Follow-up Plan Post instructions given advised to make appointment in 4 days to discontinue tashi Primary Care Provider Care Physician No Primary Time spent on discharge: < 30 minutes HERBERT BRAND MD Apr 18, 2017 15:53
[2017-04-18 16:00] VITALS: BP 116/79; PULSE 76; RESP 18
== END 2017-04-18 18:16 | disposition home or self-care (01) | DRG 766 ==
LOC: OBT 12:46 → L-D 12:47 → OBT 14:34 → L-D 14:37 → PP1 04-15 22:18
PROVIDERS: ADMIT Obstetrics & Gynecology; ATTEND Obstetrics & Gynecology
PROC: 10D00Z1 Extraction of Products of Conception, Low, Open Approach (ICD-10-PCS; principal; 2017-04-15 17:00)
PROC: 3E00X4Z Introduction of Serum, Toxoid and Vaccine into Skin and Mucous Membranes, External Approach (ICD-10-PCS; 2017-04-18)
DX: O48.0 Post-term pregnancy (principal); O32.4XX0 Maternal care for high head at term, not applicable or unspecified; Z3A.40 40 weeks gestation of pregnancy; Z23 Encounter for immunization; Z37.0 Single live birth
CPT/HCPCS: 62319; 76815; 76818; 80307; 85025; 85610; 85730; 86592; 86900; 86901; 88307; 90715; 94760; 99464; G0463; J0131; J0690; J1100; J1200; J1885; J2274; J2405; J2590; J3010; J7120

== ENCOUNTER 2017-05-24 05:23 | Emergency (ER) | payer MEDICAID ==
[~2017-05-24] VITALS: Ht 152.4 cm; Wt 71.5 kg
[2017-05-24 05:34] VITALS: Ht 152.4 cm; Wt 71.5 kg
[2017-05-24] MEDS ORDERED: KETOROLAC 60 MG INJ IM STA (06:29)
[2017-05-24] MEDS ORDERED: DIAZEPAM 2 MG TAB PO ONE (06:30)
--- NOTE | 2017-05-24 06:44 | ERD ---
ER Documentation Chief Complaint Date/Time DATE: 05/24/17 TIME: 06:41 Chief Complaint MID BACK PAIN SINCE 0000 LAST NIGHT; TOOK TYLENOL HPI This is a 22-year-old female presents to the ER with mid back pain that started at midnight when she was going to bed. Patient states that back pain is worse whenever she moves, pain is severe and throbbing in quality. Patient tried taking Tylenol and applying warm compresses to her back however did not work. Patient denies any urine or bowel incontinence. She denies any urinary frequency or dysuria. Patient has not had any recent trauma to her back. She denies any fevers or chills. Patient had a baby via about a month and a week ago and had 2 epidurals. She denies any headaches. ROS 12 point review of systems was done, all negative except per HPI. Medications Home Meds Active Scripts Ciprofloxacin Hcl* (Ciprofloxacin Hcl*) 500 Mg Tablet, 500 MG PO BID for 10 Days , TAB Prov:BALDOMERO WINKLER 05/24/17 Ibuprofen* (Motrin*) 600 Mg Tab, 600 MG PO Q6, #30 TAB Prov:BALDOMERO WINKLER 05/24/17 Reported Medications Multivit/Min/Fol Ac/Iron/Pren* ( S*) 1 Tab Tab, 1 TAB PO DAILY, TAB 03/09/17 Allergies Allergies: Coded Allergies: No Known Allergy (Unverified , 04/14/17) PMhx/Soc History of Surgery: Yes () Anesthesia Reaction: No Hx Neurological Disorder: No Hx Respiratory Disorders: No Hx Cardiac Disorders: No Hx Psychiatric Problems: No Hx Miscellaneous Medical Probl: Yes (kideny infection ) Hx Alcohol Use: No Hx Substance Use: No Hx Tobacco Use: No Physical Exam Vitals Vital Signs Date Time Temp Pulse Resp B/P Pulse Ox O2 Delivery O2 Flow Rate FiO2 05/24/17 05:34 96.2 76 18 111/69 100 Physical Exam GENERAL: The patient is well developed and appropriate for usual state of health , in no apparent distress. NECK: C-spine is soft and supple. There is no cervical lymphadenopathy. CHEST: Clear to auscultation bilaterally. There are no rales, wheezes or rhonchi. HEART: Regular rate and rhythm. No murmurs, clicks, rubs or gallops. ABDOMEN: Soft, nontender and nondistended. Good bowel sounds. No rebound or guarding. No gross peritonitis. No gross organomegaly or masses. No Singleton sign or McBurney point tenderness. No pulsatile abdominal mass. BACK: No midline or flank tenderness. Tender to palpation from T6-T9. Tense paraspinal muscles. Negative leg raise test. No step- offs. EXTREMITIES: Equal pulses bilaterally. There is no peripheral clubbing, cyanosis or edema. No focal swelling or erythema. Full range of motion. Grossly neurovascularly intact. NEURO: Alert and oriented. Cranial nerves II through XII are intact. Motor strength in all 4 extremities with 5/5 strength. Sensation grossly intact. Normal speech and gait. SKIN: There is no apparent rash or petechia. The skin is warm and dry. Results 24 hrs Laboratory Tests Test 05/24/17 07:14 Bedside Urine pH (LAB) 6.0 Bedside Urine Protein (LAB) Trace Bedside Urine Glucose (UA) Negative Bedside Urine Ketones (LAB) Trace Bedside Urine Blood Trace-intact Bedside Urine Nitrite (LAB) Positive Bedside Urine Leukocyte Esterase (L 1+ Current Medications Medications (Trade) Dose Ordered Sig/Jonathan Route PRN Reason Start Time Stop Time Status Last Admin Dose Admin Ketorolac Tromethamine (Toradol) 60 mg ONCE STAT IM 05/24/17 06:29 05/24/17 06:30 DC 05/24/17 06:42 Diazepam (Valium) 2 mg ONCE ONCE PO 05/24/17 06:30 05/24/17 06:31 DC Ceftriaxone Sodium (Rocephin) 1 gm ONCE ONCE IM 05/24/17 07:30 05/24/17 07:31 DC 05/24/17 07:32 Lidocaine (Xylocaine 2% (Mdv) 20 ml) 20 ml ONCE ONCE INJ 05/24/17 07:30 05/24/17 07:31 DC 05/24/17 07:32 Procedures/MDM Differential Diagnosis includes but is not limited to back strain, vertebral fracture, epidural abscess, cauda equina, herniated disc, AAA rupture, kidney stones, UTI, pyelonephritis. This is a 22-year-old female presents to the ER with mid back pain that started last night. Patient was found to have a significant urinary tract infection and will be treated for possible bilateral nephritis. She was given a shot of Rocephin in the ER and she will be sent home with Cipro. I advised patient that she should not breast-feed for 3 or 4 hours after taking Cipro and she should dump the first round of milk. Patient will be given ibuprofen for the pain. Patient is afebrile and well-appearing. Suspicion for cauda equina or epidural abscess is low. Patient is neurovascularly intact and has full range of motion of bilateral lower extremities with no weaknesses. Patient needs to follow-up with her primary care doctor within 1-2 days or return to ER sooner if symptoms worsen. My medical decision making shared with the patient she understands and agrees with plan Departure Diagnosis: Primary Impression: Back pain Condition: Stable BALDOMERO WINKLER May 24, 2017 06:44
[2017-05-24 07:11] LABS: URINE BLOOD (Dip) POC Trace-intact (NEGATIVE)
[2017-05-24] MEDS ORDERED: LIDOCAINE 2% (MDV) 20 ML INJ INJ ONE (07:30)
[2017-05-24] MEDS ORDERED: CEFTRIAXONE 1 GM INJ IM ONE (07:30)
--- NOTE | 2017-05-24 08:43 | RADRPT ---
PROCEDURE: Thoracic Spine. CLINICAL INDICATION: Back Pain TECHNIQUE: Three views of the thoracic spine are available for review COMPARISON: None available FINDINGS: Alignment is intact and normal. On the frontal view, there is mild scoliotic curvature of the thorac olumbar junction of the spine. The vertebral body heights and intervertebral disk heights are all pr eserved. The normal thoracic kyphosis is present. No fracture or dislocation is seen. No radiopaq ue foreign body is identified. The paraspinous soft tissues are unremarkable. IMPRESSION: 1. Mild thoracolumbar spinal scoliosis. 2. Otherwise, unremarkable x-ray series. RPTAT: HMJB .Roque Armijo MD, MD Date Time Electronically viewed and signed by .Roque Armijo MD, on 05/24/2017 08:42 .B/
[2017-05-24] MEDS ORDERED: IBUP-1542 PO (08:51)
[2017-05-24] MEDS ORDERED: CIPR500T4 PO (08:51)
[2017-05-24 09:04] VITALS: BP 106/74; PULSE 78; RESP 18; TEMP 98
== END 2017-05-24 09:05 | disposition home or self-care (01) ==
LOC: FTE 05:23
DX: M54.6 Pain in thoracic spine (principal)
CPT/HCPCS: 72072; 81003; 96372; J0696; J1885; Z7502; Z7610

== ENCOUNTER 2017-05-29 01:41 | Emergency (ER) | payer MEDICAID ==
[~2017-05-29] VITALS: Ht 152.4 cm; Wt 71.0 kg
[~2017-05-29 01:41] MED LIST changes: +CIPR500T4 PO; +IBUP-1542 PO
[2017-05-29 01:44] VITALS: Ht 152.4 cm; Wt 71.0 kg
--- NOTE | 2017-05-29 02:58 | ERA ---
ER Documentation Chief Complaint Date/Time DATE: 05/29/17 TIME: 02:57 Chief Complaint bib ra c/o epigastric pain x 1 hour, after 1mo infant HPI The patient is a 22-year-old female, presenting to the ER because of epigastric abdominal pain that began about an hour prior to arrival after she finishes breast-feeding her baby. She denies similar symptoms previously, denies fever, chills, neck pain, chest pain, dyspnea. She complains of nausea but no vomiting , denies diarrhea, constipation, dysuria.. She does not smoke nor drink Past medical history: None Surgical history: ROS All systems reviewed and are negative except as per history of present illness. Medications Home Meds Active Scripts Hydrocodone/Acetaminophen (Fleming 5-325 Tablet) 1 Each Tablet, 1 TAB PO Q6H Y for PAIN, #7 TAB Prov:MONICA LABOY MD 05/29/17 Ciprofloxacin Hcl* (Ciprofloxacin Hcl*) 500 Mg Tablet, 500 MG PO BID for 10 Days , TAB Prov:BALDOMERO WINKLER 05/24/17 Ibuprofen* (Motrin*) 600 Mg Tab, 600 MG PO Q6, #30 TAB Prov:BALDOMERO WINKLER 05/24/17 Reported Medications Multivit/Min/Fol Ac/Iron/Pren* ( S*) 1 Tab Tab, 1 TAB PO DAILY, TAB 03/09/17 Allergies Allergies: Coded Allergies: No Known Allergy (Unverified , 04/14/17) PMhx/Soc History of Surgery: Yes () Anesthesia Reaction: No Hx Neurological Disorder: No Hx Respiratory Disorders: No Hx Cardiac Disorders: No Hx Psychiatric Problems: No Hx Miscellaneous Medical Probl: Yes (kideny infection ) Hx Alcohol Use: No Hx Substance Use: No Hx Tobacco Use: No Physical Exam Vitals Vital Signs Date Time Temp Pulse Resp B/P Pulse Ox O2 Delivery O2 Flow Rate FiO2 05/29/17 01:44 98.7 78 18 139/84 99 Physical Exam Const: No acute distress. Head: Atraumatic. Eyes: Normal Conjunctiva. ENT: Normal External Ears, Nose and Mouth. Neck: Full range of motion. No meningismus. Resp: Clear to auscultation bilaterally. Cardio: Regular rate and rhythm. Abd: Soft, non distended, normal bowel sounds, mild epigastric and right upper quadrant tenderness, no right lower quadrant, CVA, rigidity, rebound tenderness Skin: No petechiae or rashes. Back: No midline or flank tenderness. Ext: No cyanosis, or edema. Neur: Awake and alert. No focal deficit Psych: Normal Mood and Affect. Result Diagram: 05/29/17 0313 05/29/17312 Results 24 hrs Laboratory Tests Test 05/29/17 03:10 05/29/17 03:13 Bedside Urine pH (LAB) 6.5 Bedside Urine Protein (LAB) Negative Bedside Urine Glucose (UA) Negative Bedside Urine Ketones (LAB) Negative Bedside Urine Blood Negative Bedside Urine Nitrite (LAB) Negative Bedside Urine Leukocyte Esterase (L Negative White Blood Count 13.110^3/ul Red Blood Count 4.0010^6/ul Hemoglobin 11.3g/dl Hematocrit 34.6% Mean Corpuscular Volume 86.5fl Mean Corpuscular Hemoglobin 28.3pg Mean Corpuscular Hemoglobin Concent 32.7g/dl Red Cell Distribution Width 16.0% Platelet Count 90696^3/UL Mean Platelet Volume 12.6fl Neutrophils % 78.8% Lymphocytes % 14.2% Monocytes % 5.7% Eosinophils % 0.7% Basophils % 0.2% Nucleated Red Blood Cells % 0.0/100WBC Neutrophils # 10.310^3/ul Lymphocytes # 1.910^3/ul Monocytes # 0.810^3/ul Eosinophils # 0.110^3/ul Basophils # 0.010^3/ul Nucleated Red Blood Cells # 0.010^3/ul Urine Color YELLOW Urine Clarity CLEAR Urine pH 6.0 Urine Specific [place] 1.017 Urine Ketones NEGATIVEmg/dL Urine Nitrite NEGATIVEmg/dL Urine Bilirubin NEGATIVEmg/dL Urine Urobilinogen 2+mg/dL Urine Leukocyte Esterase NEGATIVELeu/ul Urine Microscopic RBC 1/HPF Urine Microscopic WBC 1/HPF Urine Hemoglobin 1+mg/dL Urine Glucose NEGATIVEmg/dL Urine Total Protein NEGATIVEmg/dl Sodium Level 138mmol/L Potassium Level 3.6mmol/L Chloride Level 106mmol/L Carbon Dioxide Level 24mmol/L Anion Gap 12 Blood Urea Nitrogen 12mg/dl Creatinine 0.83mg/dl Glucose Level 113mg/dl Calcium Level 9.0mg/dl Total Bilirubin 0.1mg/dl Direct Bilirubin 0.00mg/dl Indirect Bilirubin 0.1mg/dl Aspartate Amino Transf (AST/SGOT) 135IU/L Alanine Aminotransferase (ALT/SGPT) 92IU/L Alkaline Phosphatase 257IU/L Total Protein 7.0g/dl Albumin 4.4g/dl Globulin 2.60g/dl Albumin/Globulin Ratio 1.69 Lipase 143U/L Current Medications Medications (Trade) Dose Ordered Sig/Jonathan Route PRN Reason Start Time Stop Time Status Last Admin Dose Admin Sodium Chloride (NS) 1,000 ml @ 1,000 mls/hr Q1H STAT IV 05/29/17 03:03 05/29/17 04:02 DC 05/29/17 03:17 Morphine Sulfate (morphine) 2 mg ONCE STAT IV 05/29/17 03:03 05/29/17 03:04 DC 05/29/17 03:17 Ondansetron HCl (Zofran Inj) 4 mg ONCE STAT IV 05/29/17 03:03 05/29/17 03:04 DC 05/29/17 03:17 Procedures/[place] [id number] Radiology Main Line: [phone] DIAGNOSTIC IMAGING REPORT Patient: EDIL SWARTZ : 1995 Age: 22 Sex: F [id number] DOS: 05/29/17 0303 Ordering MD: MONICA LABYO MD Location: E/R Room/Bed: PROCEDURE: Ultrasound of the abdomen. CLINICAL INDICATION: Right upper quadrant pain. TECHNIQUE: Sonographic images of the abdomen were performed. COMPARISON: No pertinent prior examinations were submitted for comparison. FINDINGS: Liver: The liver is normal echogenicity but mildly enlarged, measuring approximately 17.9 cm. The hepatic veins and portal veins are patent with appropriate directional flow. No intrahepatic ductal dilatation is seen. Gallbladder: Multiple stones are noted within the gallbladder. No definite gallbladder wall thickening or pericholecystic free fluid is seen. The common duct measures 3.5 mm. Pancreas: There is limited evaluation of the pancreatic body and tail. The visualized portions of the pancreas are unremarkable. Kidneys: The right kidney measures 10.2 cm. There is normal corticomedullary differentiation. There is no evidence of renal calculus or hydronephrosis. IVC: The visualized portion of the inferior vena cava is unremarkable. Aorta: Normal in size. Free fluid: None. IMPRESSION: Cholelithiasis. RPTAT: HIKT .Albert Nevarez MD, Date Time Electronically viewed and signed by .Albert Nevarez MD, MD on 05/29/2017 04:02 .T/ CC: MONICA LABOY MD MEDICAL MAKING DECISION: The patient is a 32-year-old female, presenting with with acute biliary colic. She was treated with 1 L normal saline for clinical dehydration, morphine 2 mg IV for pain, Zofran 4 mg IV for now sent with good response. She is stable for outpatient follow-up The differential diagnoses considered include but are not limited to cholelithiasis, cholecystitis, cystitis, pancreatitis, hepatitis, gastritis, peptic ulcer disease, gastric ulcer, appendicitis, diverticulitis, cholangitis, choledocholithiasis, partial small bowel obstruction. Departure Diagnosis: Primary Impression: Biliary colic Additional Impressions: Anemia Abnormal LFTs Condition: Good Comments He was discharged with [place] I discussed the findings with the patient. I advised the patient to follow-up with the primary physician in about 1-2 days for referral to general surgeon for elective cholecystectomy, sooner if needed and return if any concern. MONICA LABOY MD May 29, 2017 02:58
[2017-05-29] MEDS ORDERED: morphine 2 MG INJ IV STA (03:03)
[2017-05-29] MEDS ORDERED: ONDANSETRON 4 MG INJ IV STA (03:03)
[2017-05-29] MEDS ORDERED: SOD CHLORIDE 0.9% 1,000 ML IV STA (03:03)
[2017-05-29 03:06] LABS: URINE BLOOD (Dip) POC Negative (NEGATIVE)
[2017-05-29 03:28] LABS: ADD SCAN DIFF NO
[2017-05-29 03:31] LABS: BASOPHILS % 0.2 % (0.0-2.0); EOSINOPHILS # 0.1 10^3/ul (0.0-0.5); EOSINOPHILS % 0.7 % (0.0-7.0); HEMATOCRIT 34.6 % (37.0-47.0); HEMOGLOBIN 11.3 g/dl (12.0-16.0); LYMPHOCYTES # 1.9 10^3/ul (0.8-2.9); LYMPHOCYTES % 14.2 % (15.0-51.0); MEAN CORPUSCULAR HEMOGLOBIN 28.3 pg (29.0-33.0); MEAN CORPUSCULAR HGB CONC 32.7 g/dl (32.0-37.0); MEAN CORPUSCULAR VOLUME 86.5 fl (82.0-101.0); MEAN PLATELET VOLUME 12.6 fl (7.4-10.4); MONOCYTE # 0.8 10^3/ul (0.3-0.9); MONOCYTES % 5.7 % (0.0-11.0); NEUTROPHIL # 10.3 10^3/ul (1.6-7.5); NEUTROPHILS % 78.8 % (39.0-77.0); PLATELET COUNT 272 10^3/UL (140-415); WHITE BLOOD COUNT 13.1 10^3/ul (4.8-10.8)
[2017-05-29 03:52] LABS: ADD UMIC YES; UR ASCORBIC ACID NEGATIVE (NEGATIVE); UR BILIRUBIN (Dip) NEGATIVE (NEGATIVE); UR BLOOD (Dip) 1+ mg/dL (NEGATIVE); UR CLARITY CLEAR (CLEAR); UR COLOR YELLOW (YELLOW); UR GLUCOSE (Dip) NEGATIVE (NEGATIVE); UR KETONES (Dip) NEGATIVE (NEGATIVE); UR LEUKOCYTE ESTERASE (Dip) NEGATIVE Leu/ul (NEGATIVE); UR NITRITE (Dip) NEGATIVE (NEGATIVE); UR RBC 1 /HPF (0-5); UR SPECIFIC GRAVITY (Dip) 1.017 (1.003-1.030); UR TOTAL PROTEIN (Dip) NEGATIVE (NEGATIVE); UR UROBILINOGEN (Dip) 2+ mg/dL (NEGATIVE)
[2017-05-29 03:58] LABS: ALBUMIN 4.4 g/dl (3.3-4.9); ALBUMIN/GLOBULIN RATIO 1.69; BILIRUBIN,INDIRECT 0.1 mg/dl (0-1.1); BILIRUBIN,TOTAL 0.1 mg/dl (0.2-1.3); CREATININE 0.83 mg/dl (0.44-1.00); POTASSIUM 3.6 mmol/L (3.5-5.1)
--- NOTE | 2017-05-29 04:03 | RADRPT ---
PROCEDURE: Ultrasound of the abdomen. CLINICAL INDICATION: Right upper quadrant pain. TECHNIQUE: Sonographic images of the abdomen were performed. COMPARISON: No pertinent prior examinations were submitted for comparison. FINDINGS: Liver: The liver is normal echogenicity but mildly enlarged, measuring approximately 17.9 cm. The h epatic veins and portal veins are patent with appropriate directional flow. No intrahepatic ductal d ilatation is seen. Gallbladder: Multiple stones are noted within the gallbladder. No definite gallbladder wall thicke larisa or pericholecystic free fluid is seen. The common duct measures 3.5 mm. Pancreas: There is limited evaluation of the pancreatic body and tail. The visualized portions of the pancreas are unremarkable. Kidneys: The right kidney measures 10.2 cm. There is normal corticomedullary differentiation. Ther e is no evidence of renal calculus or hydronephrosis. IVC: The visualized portion of the inferior vena cava is unremarkable. Aorta: Normal in size. Free fluid: None. IMPRESSION: Cholelithiasis. RPTAT: HIKT .Albert Nevarez MD, MD Date Time Electronically viewed and signed by .Albert Nevarez MD, on 05/29/2017 04:02 .T/
[2017-05-29] MEDS ORDERED: HYDR-906 PO (04:37)
[2017-05-29 04:59] VITALS: BP 116/56; PULSE 70; RESP 18
== END 2017-05-29 05:00 | disposition home or self-care (01) ==
LOC: E/R 01:41
DX: K80.50 Calculus of bile duct without cholangitis or cholecystitis without obstruction (principal); D64.9 Anemia, unspecified; R94.5 Abnormal results of liver function studies
CPT/HCPCS: 76705; 80053; 81001; 81003; 83690; 85025; J2270; J2405; J7030; 36415; 96374; 96375